=== PATIENT | female | born 1985 | race Caucasian/White ===

== ENCOUNTER 2017-12-28 01:21 | Emergency (ER) | payer SELFPAY ==
[~2017-12-28] VITALS: Ht 165.1 cm; Wt 45.4 kg
[2017-12-28] MEDS ORDERED: LORA2TAB95 PO (01:35)
[2017-12-28] MEDS ORDERED: HYDR-548 PO (01:35)
--- NOTE | 2017-12-28 01:44 | NUR ---
DR JUAN ALVARADO MD AT BEDSIDE FOR MSE.
[2017-12-28] MEDS ORDERED: NEOMY/BACITRA/POLYMYXIN B OINT UD PACKET TP ONE ×2 (01:57→02:00)
[2017-12-28] MEDS ORDERED: SULFAMETH/TRIMETH 800/160 MG TABLET ONE (01:57)
[2017-12-28] MEDS ORDERED: SULFAMETH/TRIMETH 800/160 MG TABLET PO ONE (02:00)
--- NOTE | 2017-12-28 02:00 | NUR ---
Patient discharged to home in stable conditon. Written and verbal after care instructions given. Patient verbalizes understanding of instructions. Pt ambulated from ER w/ steady gait, accompanied by friend. No acute distress noted. Pt took all personal belongings.
[2017-12-28 02:02] VITALS: BP 133/84
== END 2017-12-28 02:14 | disposition home or self-care (01) ==
LOC: ER 01:24
DX: B95.8 Unspecified staphylococcus as the cause of diseases classified elsewhere (principal); L08.9 Local infection of the skin and subcutaneous tissue, unspecified; Z88.8 Allergy status to other drugs, medicaments and biological substances; Z79.891 Long term (current) use of opiate analgesic; Z79.899 Other long term (current) drug therapy
CPT/HCPCS: 99283; A4663